=== PATIENT | female | born 1985 | race Two or more races ===

== ENCOUNTER 2016-07-03 03:40 | Emergency (ER) | payer SELFPAY ==
[~2016-07-03] VITALS: Ht 157.5 cm; Wt 81.6 kg
[2016-07-03] MEDS: CLINDAMYCIN HCL 150 MG CAP PO ONE (04:32)
[2016-07-03] MEDS: IBUPROFEN 600 MG TAB PO ONE (04:32)
[2016-07-03 04:34] VITALS: BP 132/74
== END 2016-07-03 04:51 | disposition home or self-care (01) ==
LOC: ER 03:44
DX: K08.89 Other specified disorders of teeth and supporting structures (principal); F17.210 Nicotine dependence, cigarettes, uncomplicated; F15.10 Other stimulant abuse, uncomplicated; Z88.1 Allergy status to other antibiotic agents; Z88.8 Allergy status to other drugs, medicaments and biological substances; Z59.0 Homelessness

== ENCOUNTER 2016-09-28 04:04 | Emergency (ER) | payer SELFPAY ==
[~2016-09-28] VITALS: Ht 157.5 cm; Wt 77.1 kg
[2016-09-28 04:10] VITALS: BP 111/75
== END 2016-09-29 05:13 | disposition home or self-care (01) ==
LOC: ER 04:04
DX: K04.7 Periapical abscess without sinus (principal); F17.210 Nicotine dependence, cigarettes, uncomplicated; F15.10 Other stimulant abuse, uncomplicated; Z88.1 Allergy status to other antibiotic agents; Z88.8 Allergy status to other drugs, medicaments and biological substances; Z59.0 Homelessness

== ENCOUNTER 2017-02-20 00:17 | Inpatient (IN) | payer MEDICAID ==
[~2017-02-20] VITALS: Ht 157.5 cm; Wt 95.7 kg
[2017-02-20 02:05] LABS: Basophils # (auto) 0.1 uL; Basophils % (auto) 0.7 % (0.0-2.0); Eosinophils # (auto) 0.3 uL; Eosinophils % (auto) 3.8 % (0.0-7.0); Hematocrit 34.5 % (36.0-46.0); Hemoglobin 11.1 g/dL (12.2-16.2); Lymphocytes # (auto) 2.6 uL; Lymphocytes % (auto) 37.7 % (10.0-50.0); Mean Corpuscular Hemoglobin 28.6 pg (28.0-32.0); Mean Corpuscular Hgb Conc. 32.1 g/dL (32.0-36.0); Mean Corpuscular Volume 88.9 fL (80.0-100.0); Mean Platelet Volume 8.3 fL (6.9-10.8); Monocytes # (auto) 0.3 uL; Monocytes % (auto) 4.9 % (0.0-12.0); Neutrophils # (auto) 3.6 uL; Neutrophils % (auto) 52.9 % (37.0-80.0); Nucleated Red Blood Cells % 0.1 %; Platelet Count (auto) 373 10^3/uL (140-450); Red Cell Distribution Width 14.3 % (11.8-14.3); White Blood Cell 6.9 10^3/uL (4.4-10.8)
[2017-02-20 02:28] LABS: Albumin 3.1 g/dL (3.4-5.0); BUN/Creatinine Ratio 10.8; Calcium 8.7 mg/dL (8.5-10.1); Potassium 3.7 mmol/L (3.5-5.1)
[2017-02-20 02:30] LABS: Bilirubin, Total 0.1 mg/dL (0.2-1.0)
[2017-02-20 02:37] LABS: B-Type Natriuretic Peptide 22.3 pg/mL (0-100); Temperature: 22.7 C (20.0-25.0)
[2017-02-20] MEDS ORDERED: CLINDAMYCIN 900MG IV 50 ML IV ONE (07:30)
[2017-02-20] MEDS ORDERED: IOHEXOL 300 MG/ML 100ML BOTTLE IJ ONE (13:42)
[2017-02-20] MEDS ORDERED: NITROGLYCERIN 0.4 MG SL TAB SL PRN (13:45)
[2017-02-20] MEDS ORDERED: PROMETHAZINE HCL 25 MG/ML 1ML IV PRN (13:45)
[2017-02-20] MEDS ORDERED: MORPHINE SULF INJ 2 MG/ML SYRINGE 1ML IV PRN ×2 (13:45)
[2017-02-20] MEDS ORDERED: TEMAZEPAM 15 MG CAP PO PRN (13:45)
[2017-02-20] MEDS ORDERED: LORazepam 0.5 MG TAB PO PRN (13:45)
[2017-02-20] MEDS ORDERED: ACETAMINOPHEN 500 MG TAB PO PRN (13:45)
[2017-02-20] MEDS ORDERED: LACTULOSE 20Gm/30ML SOLN PO PRN (13:45)
[2017-02-20] MEDS ORDERED: ENOXAPARIN SOD 40 MG/0.4 ML SYRINGE SC ONE (14:00)
[2017-02-20 14:20] LABS: Urine Bilirubin Negative (Negative); Urine Blood Negative /uL (Negative); Urine Color Yellow (Yellow); Urine Glucose Normal (Normal); Urine Ketone Negative (Negative); Urine Mucus FEW (None Seen); Urine Nitrite Negative (Negative); Urine RBC <1 /hpf (0 - 4); Urine Squamous Epithelial Cell FEW /hpf (<5); Urine Urobilinogen Normal (Negative); Urine pH 5.5 (5.0-8.0)
[2017-02-20] MEDS: CLINDAMYCIN 600MG IV 50 ML IV SCH ×2 (14:26→22:23)
[2017-02-20 17:00] VITALS: BP 95/67
[2017-02-20 22:00] VITALS: BP 103/67
[2017-02-20] MEDS: HYDROcodone-ACET 5/325MG TAB PO PRN (22:23)
[2017-02-21 05:00] VITALS: BP 109/66
[2017-02-21] MEDS: CLINDAMYCIN 600MG IV 50 ML IV SCH ×3 (05:32→21:31)
[2017-02-21 07:29] LABS: Cholesterol 103 mg/dL (< 200); HDL Cholesterol 31 mg/dL (40-59); LDL Cholesterol 66 mg/dL (< 100); Triglycerides 125 mg/dL (< 150)
[2017-02-21 07:30] VITALS: BP 96/53
[2017-02-21 08:23] LABS: INR 1.03 (0.9-1.15); Prothrombin Time 11.2 sec (9.37-12.3)
[2017-02-21 09:00] VITALS: BP 96/53
[2017-02-21] MEDS: cefTRIAXone 1GM/50ML D5W 50 ML IV SCH (09:00)
[2017-02-21] MEDS: ENOXAPARIN SOD 40 MG/0.4 ML SYRINGE SC SCH (10:16)
[2017-02-21] MEDS: HYDROcodone-ACET 5/325MG TAB PO PRN (10:18)
[2017-02-21 13:00] VITALS: BP 98/51
[2017-02-21] MEDS ORDERED: LIDOCAINE 1% HCL (LOCAL ANESTH.) INJ 20ML MDV ID ONE (14:45)
[2017-02-21 16:38] VITALS: BP 90/53
[2017-02-21] MEDS: SODIUM CHLORIDE 0.9% 1,000 ML IV SCH (17:06)
[2017-02-21] MEDS: SODIUM CHLOR 0.9% PF (SALINE LOCK) 10ML VIAL IV SCH (21:31)
[2017-02-21 22:00] VITALS: BP 93/51
[2017-02-22] MEDS: SODIUM CHLORIDE 0.9% 1,000 ML IV SCH ×3 (01:30→22:39)
[2017-02-22 05:00] VITALS: BP 95/52
[2017-02-22] MEDS: CLINDAMYCIN 600MG IV 50 ML IV SCH (06:38)
[2017-02-22 06:48] LABS: Basophils # (auto) 0.1 uL; Basophils % (auto) 1.2 % (0.0-2.0); Eosinophils # (auto) 0.3 uL; Eosinophils % (auto) 4.6 % (0.0-7.0); Hematocrit 34.7 % (36.0-46.0); Hemoglobin 11.3 g/dL (12.2-16.2); Lymphocytes # (auto) 3.2 uL; Lymphocytes % (auto) 46.9 % (10.0-50.0); Mean Corpuscular Hemoglobin 28.8 pg (28.0-32.0); Mean Corpuscular Hgb Conc. 32.5 g/dL (32.0-36.0); Mean Corpuscular Volume 88.6 fL (80.0-100.0); Mean Platelet Volume 8.6 fL (6.9-10.8); Monocytes # (auto) 0.3 uL; Monocytes % (auto) 3.9 % (0.0-12.0); Neutrophils % (auto) 43.4 % (37.0-80.0); Nucleated Red Blood Cells % 0.1 %; Platelet Count (auto) 383 10^3/uL (140-450); Red Cell Distribution Width 14.5 % (11.8-14.3); White Blood Cell 6.8 10^3/uL (4.4-10.8)
[2017-02-22 06:58] LABS: Calcium 8.7 mg/dL (8.5-10.1); Potassium 4.2 mmol/L (3.5-5.1)
[2017-02-22 07:00] LABS: BUN/Creatinine Ratio 15.8
[2017-02-22 09:00] VITALS: BP 88/51
[2017-02-22] MEDS: SODIUM CHLOR 0.9% PF (SALINE LOCK) 10ML VIAL IV SCH ×2 (09:36→22:15)
[2017-02-22] MEDS: cefTRIAXone 1GM/50ML D5W 50 ML IV SCH (09:36)
[2017-02-22] MEDS: ENOXAPARIN SOD 40 MG/0.4 ML SYRINGE SC SCH (09:42)
[2017-02-22 13:00] VITALS: BP 90/63
[2017-02-22 16:20] VITALS: BP 90/58
[2017-02-22] MEDS: VANCOMYCIN 1GM/250ML D5W 250 ML IV SCH ×2 (16:41→22:15)
[2017-02-22 20:00] VITALS: BP 108/52
[2017-02-22 22:00] VITALS: BP 108/57
[2017-02-22] MEDS ORDERED: VANCOMYCIN 1GM/250ML D5W 250 ML IV SCH (22:00)
[2017-02-23] MEDS: HYDROcodone-ACET 5/325MG TAB PO PRN ×4 (01:36→20:38)
[2017-02-23 05:00] VITALS: BP 106/63
[2017-02-23] MEDS: VANCOMYCIN 1GM/250ML D5W 250 ML IV SCH ×2 (06:11→14:45)
[2017-02-23 06:52] LABS: BUN/Creatinine Ratio 21.8; Calcium 7.8 mg/dL (8.5-10.1)
[2017-02-23 07:30] VITALS: BP 103/74
[2017-02-23] MEDS: SODIUM CHLORIDE 0.9% 1,000 ML IV SCH (07:30)
[2017-02-23 09:00] VITALS: BP 103/74
[2017-02-23] MEDS: ENOXAPARIN SOD 40 MG/0.4 ML SYRINGE SC SCH (10:00)
[2017-02-23] MEDS: SODIUM CHLOR 0.9% PF (SALINE LOCK) 10ML VIAL IV SCH (12:55)
[2017-02-23 13:00] VITALS: BP 98/63
[2017-02-23 17:00] VITALS: BP 112/63
[2017-02-23] MEDS ORDERED: SULF400T11 PO (17:06)
== END 2017-02-23 20:50 | disposition home or self-care (01) | DRG 383 ==
LOC: ER 00:20 → EDUNIT# 00:21 → TELE 00:21 → EAST 15:05 → TELE-E-ADS 15:34 → TELE-EAST 16:15 → EAST 19:03
PROVIDERS: ADMIT Internal Medicine; ATTEND Nurse Practitioner Acute Care
DX: L03.116 Cellulitis of left lower limb (principal); E44.1 Mild protein-calorie malnutrition; L02.416 Cutaneous abscess of left lower limb; F20.81 Schizophreniform disorder; F17.210 Nicotine dependence, cigarettes, uncomplicated; F11.90 Opioid use, unspecified, uncomplicated; F15.90 Other stimulant use, unspecified, uncomplicated; F19.90 Other psychoactive substance use, unspecified, uncomplicated; B95.62 Methicillin resistant Staphylococcus aureus infection as the cause of diseases classified elsewhere; Z88.1 Allergy status to other antibiotic agents; Z88.0 Allergy status to penicillin; Z68.38 Body mass index [BMI] 38.0-38.9, adult; Z80.6 Family history of leukemia; Z83.3 Family history of diabetes mellitus; Z88.8 Allergy status to other drugs, medicaments and biological substances
CPT/HCPCS: 36415; 36569; 71010; 71020; 73701; 80048; 80053; 80061; 80202; 80307; 81001; 81025; 83605; 83880; 84443; 85025; 85610; 85652; 87040; 87077; 87186; 87205; 93970; 96365; 96372; J0696; J3490

== ENCOUNTER 2018-10-14 23:01 | Emergency (ER) | payer MEDICAID ==
[~2018-10-14] VITALS: Ht 157.5 cm; Wt 90.7 kg
[~2018-10-14 23:01] MED LIST: SULF400T11 PO
[2018-10-14 23:21] VITALS: BP 123/76
[2018-10-14 23:53] LABS: Basophils # (auto) 0 uL; Basophils % (auto) 0.5 % (0.0-2.0); Eosinophils # (auto) 0.1 uL; Eosinophils % (auto) 2.8 % (0.0-7.0); Hematocrit 37.2 % (36.0-46.0); Hemoglobin 11.9 g/dL (12.2-16.2); Lymphocytes # (auto) 2.1 uL; Lymphocytes % (auto) 40.4 % (10.0-50.0); Mean Corpuscular Hemoglobin 27.4 pg (28.0-32.0); Mean Corpuscular Hgb Conc. 32.1 g/dL (32.0-36.0); Mean Corpuscular Volume 85.4 fL (80.0-100.0); Monocytes # (auto) 0.2 uL; Monocytes % (auto) 4.6 % (0.0-12.0); Neutrophils # (auto) 2.7 uL; Neutrophils % (auto) 51.7 % (37.0-80.0); Platelet Count (auto) 244 10^3/uL (140-450); Red Blood Cells 4.36 10^6/uL (4.0-5.20); Red Cell Distribution Width 15.7 % (11.8-14.3); White Blood Cell 5.3 10^3/uL (4.4-10.8)
[2018-10-15 00:10] LABS: Albumin 3.7 g/dL (3.4-5.0); BUN/Creatinine Ratio 13.9; Potassium 3.6 mmol/L (3.5-5.1)
[2018-10-15 00:14] LABS: Bilirubin, Total 0.1 mg/dL (0.2-1.0); Total Protein 8.3 g/dL (6.4-8.2)
== END 2018-10-15 01:30 | disposition left against medical advice (07) ==
LOC: ER 23:04
DX: L02.415 Cutaneous abscess of right lower limb (principal); K12.2 Cellulitis and abscess of mouth; Z53.21 Procedure and treatment not carried out due to patient leaving prior to being seen by health care provider
CPT/HCPCS: 36415; 80053; 83605; 85025; 87040

== ENCOUNTER 2018-10-20 22:39 | Emergency (ER) | payer SELFPAY ==
[~2018-10-20] VITALS: Ht 157.5 cm; Wt 90.7 kg
[2018-10-20 23:36] VITALS: BP 112/75
[2018-10-21 02:12] LABS: Basophils # (auto) 0 uL; Basophils % (auto) 0.3 % (0.0-2.0); Eosinophils # (auto) 0.2 uL; Eosinophils % (auto) 3.3 % (0.0-7.0); Hematocrit 35.5 % (36.0-46.0); Hemoglobin 11.3 g/dL (12.2-16.2); Lymphocytes # (auto) 2.5 uL; Lymphocytes % (auto) 43.2 % (10.0-50.0); Mean Corpuscular Hemoglobin 27.1 pg (28.0-32.0); Mean Corpuscular Hgb Conc. 31.9 g/dL (32.0-36.0); Monocytes # (auto) 0.3 uL; Monocytes % (auto) 4.7 % (0.0-12.0); Neutrophils # (auto) 2.8 uL; Neutrophils % (auto) 48.5 % (37.0-80.0); Platelet Count (auto) 252 10^3/uL (140-450); Red Blood Cells 4.17 10^6/uL (4.0-5.20); Red Cell Distribution Width 15.5 % (11.8-14.3); White Blood Cell 5.9 10^3/uL (4.4-10.8)
[2018-10-21 02:25] LABS: Albumin 3.7 g/dL (3.4-5.0); BUN/Creatinine Ratio 14.9; Calcium 8.6 mg/dL (8.5-10.1); Potassium 3.9 mmol/L (3.5-5.1)
[2018-10-21 02:27] LABS: Bilirubin, Total 0.2 mg/dL (0.2-1.0); Total Protein 7.8 g/dL (6.4-8.2)
== END 2018-10-21 05:49 | disposition left against medical advice (07) ==
LOC: ER 22:41
DX: R10.9 Unspecified abdominal pain (principal); M54.9 Dorsalgia, unspecified; Z53.21 Procedure and treatment not carried out due to patient leaving prior to being seen by health care provider
CPT/HCPCS: 36415; 74176; 80053; 84702; 85025

== ENCOUNTER 2018-11-11 21:52 | Emergency (ER) | payer SELFPAY ==
[~2018-11-11] VITALS: Ht 157.5 cm; Wt 81.6 kg
[2018-11-11 22:02] VITALS: BP 117/77
[2018-11-12 01:33] LABS: Urine Bacteria MANY /hpf (None Seen); Urine Blood 2+ /uL (Negative); Urine Mucus FEW (None Seen); Urine Specific Gravity 1.022 (1.001-1.035); Urine WBC 1017 /hpf (0 - 5); Urine WBC Clumps PRESENT /hpf (None Seen)
== END 2018-11-12 03:33 | disposition home or self-care (01) ==
LOC: ER 21:54
DX: N39.0 Urinary tract infection, site not specified (principal); F17.210 Nicotine dependence, cigarettes, uncomplicated; F15.10 Other stimulant abuse, uncomplicated; Z88.0 Allergy status to penicillin; Z88.1 Allergy status to other antibiotic agents
CPT/HCPCS: 81001

== ENCOUNTER 2019-02-28 01:54 | Emergency (ER) | payer MEDICAID ==
[~2019-02-28] VITALS: Ht 157.5 cm; Wt 72.6 kg
[2019-02-28 02:12] VITALS: BP 107/77
== END 2019-02-28 04:22 | disposition left against medical advice (07) ==
LOC: ER 01:57
DX: K04.7 Periapical abscess without sinus (principal); L02.415 Cutaneous abscess of right lower limb; Z53.21 Procedure and treatment not carried out due to patient leaving prior to being seen by health care provider